=== PATIENT | male | born 1945 | race Caucasian/White ===

== ENCOUNTER 2020-06-18 17:01 | Inpatient (IN) | payer OTHER ==
[~2020-06-18] VITALS: Ht 182.9 cm; Wt 80.5 kg
[2020-06-18] MEDS ORDERED: SODIUM CHLORIDE 0.9% 1,000ML IVBOLUS ONE ×2 (17:30→19:30)
--- NOTE | 2020-06-18 17:35 | NUR ---
THIS IS A 74 YO MALE BIB [facility] FROM HOME FOR MGLF, HIT HEAD, UNKNOWN LOC, +BLOOD THINNERS, +ETOH (DRANK 4 GLASSES OF WINE), HX AFIB. CLOSED HEMATOMA TO POSTERIOR RIGT SCALP. A&OX4. PATIENT HAS HX CIRRHOSIS, ASCITIC DISTENDED ABDOMEN PRESENT. PATIENT STATES "I ALSO HAVE HEART PROBLEMS", CRACKLES AND RHONCHI PRESENT WHILE AUSCULTATING LUNGS. AFIB PRESENT ON MONITOR. PATIENT HYPOTENSIVE ON SCENE 80'S/40'S, LAST BP WITH [facility] 110/60. PATIENT CURRENTLY IS HYPOTENSIVE AT 75/50. ERP AWARE. URINARY CATHETER PRESENT FOR URINARY RETENTION. ALL MONITORING IN PLACE, CALL LIGHT IN REACH
[2020-06-18 17:51] LABS: BASOPHILS % (AUTO) 0 % (0-1); EOSINOPHILS % (AUTO) 0 % (1-7); LYMPHOCYTES % (AUTO) 12 % (22-44); MEAN CORPUSCULAR HEMOGLOBIN 37.4 pg (27.5-34.5); MEAN PLATELET VOLUME 7.4 fL (7.4-10.4); MONOCYTES % (AUTO) 13 % (2-9); NEUTROPHILS % (AUTO) 75 % (42-75); PLATELET COUNT 164 x10^3/uL (130-400); RED BLOOD COUNT 2.96 x10^6/uL (4.38-5.82); RED CELL DISTRIBUTION WIDTH 14.7 % (9.4-14.8)
[2020-06-18 18:02] LABS: ALANINE AMINOTRANSFERASE 19 U/L (12-78); ALBUMIN 2.1 g/dL (3.4-5.0); ANION GAP 11 mmol/L (5-15); CALCIUM 7.4 mg/dL (8.5-10.1); CHLORIDE 85 mmol/L (98-107)
[2020-06-18 18:07] LABS: ALKALINE PHOSPHATASE 198 U/L (45-117); BILIRUBIN,TOTAL 0.5 mg/dL (0.2-1.0); CREATININE 0.72 mg/dL (0.7-1.3); TROPONIN I < 0.015 ng/mL (0.000-0.045)
[2020-06-18 18:55] LABS: MD MORPH REVIEW ONLY
[2020-06-18 18:57] LABS: <PLATELET ESTIMATE> ADEQUATE; <PLT MORPHOLOGY> NORMAL PLT MORPH; OVALOCYTES 1+; TEAR DROPS 1+
--- NOTE | 2020-06-18 19:12 | NUR ---
UA COLLECTED AND SENT
[2020-06-18] MEDS ORDERED: BENZONATATE 100 MG CAPSULE ONE (19:20)
[2020-06-18 19:23] LABS: MICROSCOPIC INDICATED
[2020-06-18] MEDS ORDERED: BENZONATATE 100 MG CAPSULE PO ONE (19:30)
--- NOTE | 2020-06-18 19:42 | NUR ---
ADRIANA RN: ERP AWARE OF PT BP, 80'S/50'S. PT FINISHING 1ST LITER FLUID. PER ERP, HE INITIALLY ORDERED 500ML MORE BUT WOULD LIKE PT TO HAVE ANOTHER 1 LITER FOR A TOTAL OF 2 LITERS NS. 2ND LITER STARTED. DR PORRAS AT BEDSIDE TO RICH.
[2020-06-18] MEDS ORDERED: TAMSULOSIN PO (19:48)
[2020-06-18] MEDS ORDERED: FINASTERIDE PO (19:48)
[2020-06-18] MEDS ORDERED: ASPIRIN PO (19:48)
[2020-06-18] MEDS ORDERED: FOLIC ACID PO (19:48)
[2020-06-18] MEDS ORDERED: [UNRECOGNIZED DRUG - OTHER] PO (19:48)
[2020-06-18] MEDS ORDERED: LASIX PO (19:48)
[2020-06-18] MEDS ORDERED: SILDENAFIL PO (19:48)
[2020-06-18] MEDS ORDERED: LOSARTAN PO (19:48)
[2020-06-18] MEDS ORDERED: CARVEDILOL PO (19:48)
[2020-06-18] MEDS ORDERED: SPIRONOLACTONE PO (19:48)
[2020-06-18] MEDS ORDERED: PROMETHAZINE 25 MG/ML, 1ML IM PRN (20:00)
[2020-06-18] MEDS ORDERED: morphine SULFATE 10 MG/ML, 1ML IVPush PRN (20:00)
[2020-06-18] MEDS ORDERED: ONDANSETRON 2MG/ML, 2ML IVPush PRN (20:00)
[2020-06-18] MEDS ORDERED: LABETALOL 5MG/ML, 20ML IVPush PRN (20:00)
[2020-06-18] MEDS ORDERED: ONDANSETRON ODT 4 MG PO PRN (20:00)
[2020-06-18 20:10] VITALS: BP 95/47
--- NOTE | 2020-06-18 20:21 | NUR ---
THIS RN SPOKE WITH DR. PORRAS ABOUT BLOOD PRESSURE BEING 80'S/40'S AND UPGRADING TO CCU. DR. PORRAS STATES TO FINISH 2ND LITER OF FLUID, RE-EVALUATE BP, NAD IF IT IS NOT BETTER THEN "WE'LL SEE", STATES "HE'S NOT SYMPTOMATIC, IT'S BECAUSE HE PROBABLY DOES NOT HAVE HIGH BLOOD PRESSURE AND IS TAKING BLOOD PRESSURE MEDICINES WITH THE LASIX AND IT WILL TAKE A LITTLE TIME TO RECOVER FROM THAT". THIS RN IS MONITORING PATIENT AT THIS TIME, NO CHANGE TO LUNG SOUNDS AT THIS TIME, CRACKLES AND RHONCHI STILL PRESENT, SPO2 AT 95% ON RA.
[2020-06-18] MEDS ORDERED: LORazepam 2 MG/ML, 1ML IV PRN ×5 (20:30)
[2020-06-18] MEDS ORDERED: CEFTRIAXONE PMX 2GM/50ML 50 ML IVPB SCH (20:30)
[2020-06-18] MEDS ORDERED: LORazepam 1MG TABLET PO PRN ×4 (20:30)
[2020-06-18] MEDS ORDERED: LORazepam 0.5MG TABLET PO PRN (20:30)
[2020-06-18 20:50] LABS: INTERNATIONAL NORMALIZED RATIO 1.35 (0.93-1.1); PROTHROMBIN TIME 14.3 Seconds (9.6-11.5)
[2020-06-18 21:00] LABS: FREE T4 (FREE THYROXINE) 1.06 ng/dL (0.76-1.46)
[2020-06-18] MEDS: ALBUMIN HUMAN 25% 100 ML IV SCH (21:07)
--- NOTE | 2020-06-18 21:17 | NUR ---
ALBUMIN INFUSION STARTED
--- NOTE | 2020-06-18 21:53 | NUR ---
REPORT GIVEN TO KOMAL CALZADA. PLAN OF CARE DISCUSSED. ALBUMIN INFUSING AT TIME OF TRANSFER
[2020-06-18] MEDS: LACTULOSE 10 GM/15 ML UDC PO SCH (22:57)
[2020-06-18 23:20] VITALS: BP 92/44
[2020-06-19] MEDS: GUAIFENESIN ER 600 MG TABLET PO PRN ×2 (00:12→16:52)
[2020-06-19 00:18] VITALS: BP 92/57
[2020-06-19 00:26] VITALS: BP 95/59
[2020-06-19] MEDS: ALBUMIN HUMAN 25% 100 ML IV SCH ×4 (01:58→20:13)
[2020-06-19 01:59] VITALS: BP 105/72
[2020-06-19 05:53] LABS: BASOPHILS % (AUTO) 1 % (0-1); EOSINOPHILS % (AUTO) 1 % (1-7); LYMPHOCYTES % (AUTO) 15 % (22-44); MEAN CORPUSCULAR HEMOGLOBIN 38.7 pg (27.5-34.5); MEAN CORPUSCULAR HGB CONC 35.4 g/dL (33.2-36.2); MEAN PLATELET VOLUME 7.1 fL (7.4-10.4); MONOCYTES % (AUTO) 13 % (2-9); NEUTROPHILS % (AUTO) 71 % (42-75); PLATELET COUNT 137 x10^3/uL (130-400); RED BLOOD COUNT 2.59 x10^6/uL (4.38-5.82); RED CELL DISTRIBUTION WIDTH 14.4 % (9.4-14.8)
[2020-06-19 06:00] LABS: MD NO
[2020-06-19 06:04] LABS: ALBUMIN 2.6 g/dL (3.4-5.0); ANION GAP 7 mmol/L (5-15); CALCIUM 7.6 mg/dL (8.5-10.1); CHLORIDE 93 mmol/L (98-107)
[2020-06-19 06:09] LABS: ALANINE AMINOTRANSFERASE 18 U/L (12-78); ALKALINE PHOSPHATASE 154 U/L (45-117); BILIRUBIN,TOTAL 1.1 mg/dL (0.2-1.0); CREATININE 0.65 mg/dL (0.7-1.3); HDL CHOLESTEROL (DIRECT) 26 mg/dL (40-60); TOTAL PROTEIN 4.8 g/dL (6.4-8.2); TRIGLYCERIDES 43 mg/dL (50-200); VLDL CHOLESTEROL 9 mg/dL (0-25)
[2020-06-19 06:11] LABS: CHOL/HDL RATIO 1.9; CHOLESTEROL, TOTAL < 50 mg/dL (140-239); HDL CHOL % 0 % (26-37); LDL CHOLESTEROL,CALCULATED 15 mg/dL (54-169); LDL/HDL RATIO 0.6 (0.5-3.0)
[2020-06-19 06:20] VITALS: BP 93/57
[2020-06-19] MEDS: LACTULOSE 10 GM/15 ML UDC PO SCH ×2 (07:31→20:14)
[2020-06-19] MEDS ORDERED: LIDOCAINE 1%, 10ML ONE (08:38)
[2020-06-19 10:38] LABS: ANION GAP 7 mmol/L (5-15); CALCIUM 7.9 mg/dL (8.5-10.1); CHLORIDE 95 mmol/L (98-107)
[2020-06-19 13:57] VITALS: BP 93/61
[2020-06-19] MEDS ORDERED: OMEP20CA20 PO (15:54)
[2020-06-19] MEDS ORDERED: TAMS-11 PO (15:54)
[2020-06-19] MEDS ORDERED: SPIR25TA5 PO (15:54)
[2020-06-19] MEDS ORDERED: MAGN400T26 PO (15:54)
[2020-06-19] MEDS ORDERED: FINA5TAB4 PO (15:54)
[2020-06-19] MEDS ORDERED: FOLI-17 PO (15:54)
[2020-06-19] MEDS ORDERED: FURO-93 PO (15:54)
[2020-06-19] MEDS: CEFTRIAXONE PMX 1GM/50ML 50 ML IV SCH (16:35)
[2020-06-19 17:01] LABS: ANION GAP 6 mmol/L (5-15); CALCIUM 7.7 mg/dL (8.5-10.1); CHLORIDE 96 mmol/L (98-107); CREATININE 0.49 mg/dL (0.7-1.3)
[2020-06-19 19:56] VITALS: BP 92/56
[2020-06-19 22:36] LABS: ANION GAP 6 mmol/L (5-15); CALCIUM 7.9 mg/dL (8.5-10.1); CHLORIDE 96 mmol/L (98-107); CREATININE 0.53 mg/dL (0.7-1.3)
[2020-06-20 01:03] VITALS: BP 95/59
[2020-06-20 06:17] VITALS: BP 81/55
[2020-06-20 06:22] LABS: BASOPHILS % (AUTO) 0 % (0-1); EOSINOPHILS % (AUTO) 0 % (1-7); LYMPHOCYTES % (AUTO) 16 % (22-44); MEAN CORPUSCULAR HEMOGLOBIN 37.8 pg (27.5-34.5); MEAN CORPUSCULAR HGB CONC 34.8 g/dL (33.2-36.2); MEAN PLATELET VOLUME 7.1 fL (7.4-10.4); MONOCYTES % (AUTO) 12 % (2-9); NEUTROPHILS % (AUTO) 71 % (42-75); PLATELET COUNT 122 x10^3/uL (130-400); RED BLOOD COUNT 2.49 x10^6/uL (4.38-5.82); RED CELL DISTRIBUTION WIDTH 14.5 % (9.4-14.8)
[2020-06-20 06:30] LABS: ALBUMIN 2.8 g/dL (3.4-5.0); ANION GAP 8 mmol/L (5-15); CHLORIDE 98 mmol/L (98-107)
[2020-06-20 06:36] LABS: ALANINE AMINOTRANSFERASE 12 U/L (12-78); ALKALINE PHOSPHATASE 120 U/L (45-117); BILIRUBIN,TOTAL 1.5 mg/dL (0.2-1.0); MD NO; TOTAL PROTEIN 4.5 g/dL (6.4-8.2)
[2020-06-20 09:01] VITALS: BP 92/53
[2020-06-20] MEDS: FOLIC ACID 1 MG TABLET PO SCH (09:04)
[2020-06-20] MEDS: OMEPRAZOLE 20 MG CAPSULE.DR PO SCH (09:04)
[2020-06-20] MEDS: LACTULOSE 10 GM/15 ML UDC PO SCH ×2 (09:04→20:53)
[2020-06-20] MEDS: FINASTERIDE 5 MG TABLET PO SCH (09:04)
[2020-06-20 10:41] LABS: ANION GAP 8 mmol/L (5-15); CALCIUM 7.9 mg/dL (8.5-10.1); CHLORIDE 97 mmol/L (98-107); CREATININE 0.57 mg/dL (0.7-1.3)
[2020-06-20 11:37] VITALS: BP 92/61
[2020-06-20] MEDS: OXYcodone IR 5MG TABLET PO PRN ×2 (12:01→16:03)
[2020-06-20] MEDS: CEFTRIAXONE PMX 1GM/50ML 50 ML IV SCH (16:01)
[2020-06-20 16:29] LABS: ANION GAP 6 mmol/L (5-15); CALCIUM 7.5 mg/dL (8.5-10.1); CHLORIDE 95 mmol/L (98-107); CREATININE 0.65 mg/dL (0.7-1.3)
[2020-06-20 19:40] VITALS: BP 96/65
[2020-06-20 20:34] LABS: ANION GAP 6 mmol/L (5-15); CALCIUM 7.7 mg/dL (8.5-10.1); CHLORIDE 96 mmol/L (98-107)
[2020-06-20 20:35] LABS: CREATININE 0.66 mg/dL (0.7-1.3)
[2020-06-21 00:18] VITALS: BP 97/63
[2020-06-21 02:28] LABS: BASOPHILS % (AUTO) 1 % (0-1); EOSINOPHILS % (AUTO) 2 % (1-7); LYMPHOCYTES % (AUTO) 23 % (22-44); MEAN CORPUSCULAR HEMOGLOBIN 37.6 pg (27.5-34.5); MEAN CORPUSCULAR HGB CONC 34.2 g/dL (33.2-36.2); MEAN PLATELET VOLUME 6.8 fL (7.4-10.4); MONOCYTES % (AUTO) 13 % (2-9); NEUTROPHILS % (AUTO) 62 % (42-75); PLATELET COUNT 113 x10^3/uL (130-400); RED BLOOD COUNT 2.56 x10^6/uL (4.38-5.82); RED CELL DISTRIBUTION WIDTH 14.3 % (9.4-14.8)
[2020-06-21 02:29] LABS: MD NO
[2020-06-21 02:39] LABS: ALANINE AMINOTRANSFERASE 12 U/L (12-78); ALBUMIN 2.5 g/dL (3.4-5.0); ANION GAP 6 mmol/L (5-15); CALCIUM 7.6 mg/dL (8.5-10.1); CHLORIDE 99 mmol/L (98-107); CREATININE 0.66 mg/dL (0.7-1.3)
[2020-06-21 02:41] LABS: ALKALINE PHOSPHATASE 121 U/L (45-117); BILIRUBIN,TOTAL 0.9 mg/dL (0.2-1.0); TOTAL PROTEIN 4.3 g/dL (6.4-8.2)
[2020-06-21] MEDS: OMEPRAZOLE 20 MG CAPSULE.DR PO SCH (06:13)
[2020-06-21 06:26] VITALS: BP 93/62
[2020-06-21] MEDS: LACTULOSE 10 GM/15 ML UDC PO SCH ×2 (07:49→20:47)
[2020-06-21] MEDS: FINASTERIDE 5 MG TABLET PO SCH (07:49)
[2020-06-21] MEDS: FOLIC ACID 1 MG TABLET PO SCH (07:49)
[2020-06-21] MEDS: OXYcodone IR 5MG TABLET PO PRN ×2 (07:57→20:48)
[2020-06-21 08:58] LABS: ANION GAP 5 mmol/L (5-15); CALCIUM 7.7 mg/dL (8.5-10.1); CHLORIDE 95 mmol/L (98-107)
[2020-06-21 08:59] LABS: CREATININE 0.71 mg/dL (0.7-1.3)
[2020-06-21 12:00] VITALS: BP 97/60
[2020-06-21 14:26] LABS: ANION GAP 7 mmol/L (5-15); CALCIUM 7.5 mg/dL (8.5-10.1); CHLORIDE 97 mmol/L (98-107); CREATININE 0.72 mg/dL (0.7-1.3)
[2020-06-21] MEDS: CEFTRIAXONE PMX 1GM/50ML 50 ML IV SCH (15:48)
[2020-06-21] MEDS ORDERED: CEPH-368 PO (16:12)
[2020-06-21 18:59] VITALS: BP 94/63
[2020-06-21 20:24] LABS: ANION GAP 6 mmol/L (5-15); CALCIUM 7.7 mg/dL (8.5-10.1); CHLORIDE 96 mmol/L (98-107)
[2020-06-22 01:59] LABS: ANION GAP 4 mmol/L (5-15); CALCIUM 7.8 mg/dL (8.5-10.1); CHLORIDE 98 mmol/L (98-107); CREATININE 0.62 mg/dL (0.7-1.3)
[2020-06-22 02:00] VITALS: BP 99/66
[2020-06-22] MEDS: OMEPRAZOLE 20 MG CAPSULE.DR PO SCH (05:58)
[2020-06-22] MEDS: OXYcodone IR 5MG TABLET PO PRN (06:03)
[2020-06-22 06:55] VITALS: BP 92/61
[2020-06-22] MEDS: LACTULOSE 10 GM/15 ML UDC PO SCH (09:00)
[2020-06-22] MEDS: FINASTERIDE 5 MG TABLET PO SCH (09:00)
[2020-06-22] MEDS: FOLIC ACID 1 MG TABLET PO SCH (09:00)
[2020-06-22 13:10] VITALS: BP 88/60
[2020-06-22] MEDS ORDERED: ATORVASTATIN 20 MG TABLET PO SCH (21:00)
== END 2020-06-22 15:15 | disposition home or self-care (01) | DRG 641 ==
LOC: ED 19:22 → EDIP 19:31 → 4WST 22:18 → DCLOUNGE 06-22 14:58
PROVIDERS: ADMIT Internal Medicine; ATTEND Family Medicine
PROC: 0W9G3ZZ Drainage of Peritoneal Cavity, Percutaneous Approach (ICD-10-PCS; principal; 2020-06-19)
DX: E87.1 Hypo-osmolality and hyponatremia (principal); S06.0X9A Concussion with loss of consciousness of unspecified duration, initial encounter; G72.1 Alcoholic myopathy; N39.0 Urinary tract infection, site not specified; D53.9 Nutritional anemia, unspecified; E78.5 Hyperlipidemia, unspecified; E87.2 Acidosis; F10.10 Alcohol abuse, uncomplicated; F12.90 Cannabis use, unspecified, uncomplicated; F17.200 Nicotine dependence, unspecified, uncomplicated; I10 Essential (primary) hypertension; I35.0 Nonrheumatic aortic (valve) stenosis; I49.8 Other specified cardiac arrhythmias; W01.0XXA Fall on same level from slipping, tripping and stumbling without subsequent striking against object, initial encounter; K70.31 Alcoholic cirrhosis of liver with ascites; N40.0 Benign prostatic hyperplasia without lower urinary tract symptoms; Y93.01 Activity, walking, marching and hiking; Y92.091 Bathroom in other non-institutional residence as the place of occurrence of the external cause; Y99.8 Other external cause status; Z79.82 Long term (current) use of aspirin; Z82.3 Family history of stroke
CPT/HCPCS: 36415; 82042; 83986; 84145; 89051; J3490; 49083; 70450; 71045; 80048; 80053; 80061; 81001; 82140; 83036; 83605; 83615; 83735; 84157; 84439; 84443; 84484; 85025; 85610; 87040; 87070; 87077; 87086; 87186; 87205; 93005; 93308; 93321; 93325; G0378; J0696; P9047; J7030